=== PATIENT | male | born 1990 | race Hispanic/Latino ===

== ENCOUNTER 2021-11-06 11:27 | Emergency (ER) | payer OTHER, SELFPAY ==
[2021-11-06 11:28] VITALS: BP 157/85; PULSE 105; RESP 16; TEMP 36.6; O2SAT 99; BMI 25.9
[2021-11-06] MEDS: HYDROcodone Bitartrate/Apap 5/325 Tablet PO (12:12)
[2021-11-06 12:28] VITALS: BP 126/62; PULSE 72; RESP 16; O2SAT 98
--- NOTE | 2021-11-06 12:35 | RAD_ITS ---
STUDY: X-RAY - LEFT HAND REASON FOR EXAM: Male, 31 years old. Patient shot a nail into his left hand. TECHNIQUE: 3 view(s) of the hand. COMPARISON: None. FINDINGS: Normal radiocarpal articulation. Normal distal radioulnar joint. Normal visualized carpal bones. Normal carpal articulations Normal carpometacarpal articulation of the thumb. Normal second through fifth carpometacarpal joints. Normal metacarpi. Normal metacarpophalangeal joint of the thumb. Normal interphalangeal joint of the thumb. Normal proximal and distal phalanges of the thumb. Normal metacarpophalangeal joints of the second through fifth fingers. Normal proximal and distal interphalangeal joints of the second through fifth fingers. Normal phalanges of the second through fifth fingers. There is a 6.4 cm metallic nail seen in the soft tissues between the second and third metacarpals. RAD/Hand Min 3 Views IMPRESSION: 6.4 cm metallic nail seen within the soft tissues between the proximal aspects of the second and third metacarpals. Electronically Signed: Serge Lieberman MD at 12:59 EDT ,
[2021-11-06] MEDS: Lidocaine 1% (20 ml mdv) 20 ML Vial INFILT (12:52)
[2021-11-06 13:00] VITALS: BP 118/64; PULSE 66; RESP 16; O2SAT 98
--- NOTE | 2021-11-06 13:00 | EX.ED.UPPERE ---
HPI History of Present Illness Chief Complaint: Upper Extremity Injury Informant: patient and friend Occured/Mechanism Mechanism/Context: Yes impaled Comment: Nail through left hand Narrative Narrative: Patient presents after puncturing his left hand with a nail. Patient was working using a nail gun with his right hand and punctured his left hand with a nail. He denies paresthesias. PFSH PFSH Medical History no medical history no medical history Home Medications cephalexin 500 mg PO Q6 #40 cap 11/06/21 [Rx Last Taken Unknown] hydrocodone-acetaminophen 1 tab PO Q6H PRN 3 Days #10 tab 11/06/21 [Rx Last Taken Unknown] sulfamethoxazole-trimethoprim [Bactrim DS] 1 tab PO BID #20 tab 11/06/21 [Rx Last Taken Unknown] Allergy/AdvReac Type Severity Reaction Status Date / Time Unable to Assess Allergy Verified 11/06/21 11:28 Surgical History no surgical history Social History Smoking Status: Never smoker ROS ROS ED ROS Narrative Limited review of systems based on language deficit. Bedside friend is interpreting. Constitutional Constitutional ED: Denies chills or fever(s) Cardiovascular Cardiovascular: Denies chest pain Respiratory/Chest Respiratory/Chest: Denies dyspnea Musculoskeletal Musculoskeletal: Reports other Details: Left hand pain Neurologic Neurologic: Denies paresthesias or weakness EXAM Physical Exam Const Vital Signs: 11/06/21 11:28 11/06/21 12:28 Temperature 98 F Temperature Source Temporal Pulse Rate 105 H 72 Respiratory Rate 16 16 Blood Pressure 157/85 H 126/62 H Blood Pressure Mean 109 83 Pulse Ox 99 98 Oxygen Delivery Method Room Air Room Air Positive well nourished and well developed General Appearance ED: well developed HEENT Reports moist mucous membranes Eyes PERRL and EOMs intact bilaterally Neck supple Chest Wall inspection of chest normal and palpation of chest normal Resp normal respiratory effort and clear to auscultation bilaterally Cardio regular rate and regular rhythm GI non-tender Palpation: soft Extremity Extremity Narrative: Patient is wearing a glove and has a nail impaled through his left hand. He is able to wiggle fingers and has good sensation distally. MDM MDM MDM Narrative Medical decision making narrative: Patient is given dose of Johnston for pain. Glove is cut from around the nail. Left hand x-rays obtained. Treatment and Re-Evaluation Narrative: Left hand x-ray per my interpretation reveals nail between the second and third metacarpal bones. No bony involvement noted. Hand is anesthetized with 10 cc 1% lidocaine. Following this curved hemostats were placed on the nail and it is removed without difficulty. Wound is thoroughly cleansed and dressed. Patient be placed on Bactrim and Keflex as well as Johnston for pain. He will follow up with corporate care. Discharge Plan Triage Chief Complaint: Upper Extremity Injury ED Provider: Ludmila Shields Dx/Rx/DC Orders Clinical Impression: Puncture wound of hand, left, Foreign body (FB) in soft tissue Instructions: ED Foreign Body, Soft Tissue (Removed), ED Puncture Wound (General) Prescriptions: New sulfamethoxazole-trimethoprim [Bactrim DS] 800-160 mg tablet 1 tab PO BID Qty: 20 RF: 0 cephalexin 500 mg capsule 500 mg PO Q6 Qty: 40 RF: 0 hydrocodone-acetaminophen 5-325 mg tablet 1 tab PO Q6H PRN (Reason: pain) 3 Days Qty: 10 RF: 0 Stand Alone Forms: Work Status Form Primary Care Provider: Care Physician,No Primary Referrals: Corporate,Care [GROUP OF PHYSICIANS] - 3-5 Days Care Physician,No Primary [Primary Care Provider] - Disposition Disposition: Home, Self Care
[2021-11-06] MEDS: Cephalexin 250 MG Capsule 500 MG PO (13:03)
[2021-11-06] MEDS: Smz/Tmp Ds Tablet 1 TABLET PO (13:04)
[2021-11-06 13:24] VITALS: BP 118/78; PULSE 68; RESP 16; TEMP 36.9; O2SAT 98
== END 2021-11-06 13:25 | disposition home or self-care (01) ==
PROVIDERS: Emergency Provider Emergency Medicine; Visit Provider Emergency Medicine
DX: S61.442A Puncture wound with foreign body of left hand, initial encounter (principal); W29.4XXA Contact with nail gun, initial encounter; Y99.0 Civilian activity done for income or pay
CPT/HCPCS: 73130; 99284